=== PATIENT | male | born 1990 | race Two or more races ===

== ENCOUNTER 2019-04-28 07:13 | Emergency (ER) | payer SELFPAY ==
[~2019-04-28] VITALS: Ht 177.8 cm; Wt 74.8 kg
--- NOTE | 2019-04-28 07:15 | NUR ---
BIB EMS 28 YEAR OLD MALE FOUND DOWN ON THE SIDEWALK, HEAVY ETOH SMELL. RESPONSIVE TO PAINFUL STIMULI, ALTERED FROM ALCOHOL INTOXICATION. BREATHING EVEN UNLABORED. SKIN INTACT, WAITING TO BE SEEN BY MD. WILL CONTINUE TO MONITOR
[2019-04-28] MEDS ORDERED: ONDANSETRON HCL/PF 4 MG/2 ML VIAL IVP ONE (07:30)
[2019-04-28] MEDS ORDERED: IV NS 0.9% 1,000 ML BAG IV ONE (07:30)
[2019-04-28] MEDS ORDERED: ONDANSETRON HCL/PF 4 MG/2 ML VIAL ONE (07:33)
[2019-04-28 07:39] LABS: APPEARANCE,URINE Hazy (CLEAR); BASOPHILS # (AUTO) 0.1 /CMM (0.0-0.2); BASOPHILS % (AUTO) 1.3 % (0.0-2.0); BILIRUBIN,URINE Negative (NEGATIVE); BLOOD, URINE Small Ery/uL (NEGATIVE); COLOR,URINE Yellow (YELLOW); EOSINOPHILS % (AUTO) 1.8 % (0.0-6.0); HEMATOCRIT 42 % (39-51); KETONES,URINE Negative (NEGATIVE); LEUKOCYTE ESTERASE ,URINE Negative (NEGATIVE); LYMPHOCYTES # (AUTO) 2.1 /CMM (0.8-4.8); LYMPHOCYTES % (AUTO) 21.4 % (20.0-44.0); MEAN CORPUSCULAR HGB CONC 34 g/dl (31.0-36.0); MEAN CORPUSCULAR VOLUME 94 fL (80-96); MONOCYTES # (AUTO) 0.8 /CMM (0.1-1.30); MONOCYTES % (AUTO) 8.3 % (2.0-12.0); NEUTROPHILS # (AUTO) 6.6 /CMM (1.8-8.9); NEUTROPHILS % (AUTO) 67.2 % (43.0-81.0); NITRITE, URINE Negative (NEGATIVE); PLATELET COUNT (AUTO) 242 /CMM (150-450); PROTEIN,URINE 100 mg/dl (NEGATIVE); RED BLOOD CELL COUNT(AUTO) 4.42 MIL/uL (4.5-6.0); UGLUCOSE Negative (NEGATIVE); WHITE BLOOD COUNT (AUTO) 9.8 K/uL (4.3-11.0)
[2019-04-28 07:45] LABS: BACTERIA,URINE Rare /HPF (None Seen); CALCIUM, SERUM 8.5 mg/dL (8.5-10.1); CARBON DIOXIDE 31 mmol/L (21-32); CHLORIDE 106 mmol/L (98-107); CREATININE 0.8 mg/dL (0.6-1.3); GLUCOSE 93 mg/dL (74-106); POTASSIUM 4.6 mmol/L (3.5-5.1); SODIUM SERUM 140 mmol/L (136-145); SQUAMOUS EPITHELIAL CELL,UR Few /HPF (None Seen); UREA NITROGEN, BLOOD 16 mg/dL (7-18)
[2019-04-28 07:57] LABS: ALANINE AMINOTRANSFERASE 30 U/L (12-78); ALBUMIN 4.1 g/dL (3.4-5.0); ALCOHOL, BLOOD < 3 mg/dL (0-0); ALKALINE PHOSPHATASE 69 U/L (46-116); ASPARTATE AMINOTRANSFERASE 27 U/L (15-37); BILIRUBIN,DIRECT 0.1 mg/dL (0.0-0.2); BILIRUBIN,TOTAL 0.5 mg/dL (0.2-1.0)
[2019-04-28 07:58] LABS: ACETAMINOPHEN 0 ug/ml (10-30); SALICYLATE 0.4 mg/dL (2.8-20.0)
--- NOTE | 2019-04-28 08:29 | NUR ---
PATIENT REMAINS ASLEEP WITH NO ACUTE DISTRESS. ALL MEDS GIVEN ORDERED. WILL CONTINUE TO MONITOR
--- NOTE | 2019-04-28 10:28 | NUR ---
IV removed. Catheter intact and site benign. Pressure and 4x4 applied to site. No bleeding noted.
--- NOTE | 2019-04-28 10:28 | NUR ---
Patient discharged to home in stable condition. Written and verbal after care instructions given. Patient verbalizes understanding of instruction. sandwich and juice provided to patient upon d/c
[2019-04-28 10:29] VITALS: BP 111/71
== END 2019-04-28 10:29 | disposition home or self-care (01) ==
LOC: ER 07:17
DX: F15.10 Other stimulant abuse, uncomplicated (principal); R11.10 Vomiting, unspecified; F10.10 Alcohol abuse, uncomplicated; Y90.0 Blood alcohol level of less than 20 mg/100 ml
CPT/HCPCS: 36415; 80048; 80076; 80305; 80307; 80329; 81001; 85025; 96361; 96374; 99283; G0480; J2405; J7030; 81000-TC